=== PATIENT | male | born 1955 | race Caucasian/White ===

== ENCOUNTER 2021-02-18 13:19 | Emergency (ER) | payer MEDICARE, OTHER ==
--- NOTE | 2021-02-18 13:23 | ERPHSYRPT ---
- History of Present Illness Time Seen by Provider: 02/18/21 13:23 - Departure Referrals: MAISHA CHA [Primary Care Provider] -
--- NOTE | 2021-02-18 13:24 | ERPHSYRPT ---
- History of Present Illness Time Seen by Provider: 02/18/21 13:24 Source: patient Exam Limitations: no limitations Physician History: This is a 65-year-old gentleman who is right-handed and suffered a laceration to his right forearm medial aspect just prior to evaluation here in the emergency department. Patient was working with machinery and the machinery came apart cutting his right forearm. Patient states that he had a tetanus injection 1 to 2 years ago but certainly within the last 5 years. Timing/Duration: today Quality: painful Severity: mild Location: extremities (Right forearm) Possible Causes: other (Laceration with medical equipment) Associated Symptoms: denies symptoms Allergies/Adverse Reactions: No Known Drug Allergies Allergy (Unverified 02/18/21 13:33) Home Medications: Amlodipine Besylate 5 mg [Norvasc 5 mg] 5 mg PO DAILY 02/18/21 [History] Labetalol HCl [Trandate] 100 mg PO BID 02/18/21 [History] Travel Risk - International Travel Have you traveled outside of the country in past 3 weeks: No - Coronavirus Screening Are you exhibiting any of the following symptoms?: No Close contact with a COVID-19 positive Pt in past 14-21 Days: No - Review of Systems Constitutional: No Symptoms Eyes: No Symptoms Ears, Nose, & Throat: No Symptoms Respiratory: No Symptoms Cardiac: No Symptoms Abdominal/Gastrointestinal: No Symptoms Genitourinary Symptoms: No Symptoms Musculoskeletal: No Symptoms Skin: No Symptoms, Other (Laceration right forearm) Neurological: No Symptoms Psychological: No Symptoms Endocrine: No Symptoms Hematologic/Lymphatic: No Symptoms Immunological/Allergic: No Symptoms All Other Systems: Reviewed and Negative - Past Medical History Pertinent Past Medical History: Yes - Past Surgical History Past Surgical History: Yes - Nursing Vital Signs Nursing Vital Signs: Initial Vital Signs Temperature 97.1 F 02/18/21 13:20 Pulse Rate 70 02/18/21 13:20 Respiratory Rate 18 02/18/21 13:20 Blood Pressure 125/68 02/18/21 13:20 O2 Sat by Pulse Oximetry 97 02/18/21 13:20 Pain Scale Pain Intensity 2 - Physical Exam General Appearance: no apparent distress, alert, anxiety Eye Exam: PERRL/EOMI, eyes nml inspection Ears, Nose, Throat Exam: normal ENT inspection Neck Exam: normal inspection, non-tender, supple, full range of motion Respiratory Exam: normal breath sounds, lungs clear, airway intact, No chest tenderness, No respiratory distress Gastrointestinal/Abdomen Exam: No tenderness Rectal Exam: not done Back Exam: normal inspection, normal range of motion, No CVA tenderness, No vertebral tenderness Extremity Exam: normal range of motion, pelvis stable, lacerations (6.5 cm laceration inner aspect right forearm. No foreign body. Wound was examined to the base without any bleeding present. Proximal to this laceration, there to superficial abrasions present. Patient is neurovascularly intact. There is no evidence of any tendon injury.) Neurologic Exam: alert, oriented x 3, cooperative, survey chief II-XII nml as tested, normal mood/affect, nml cerebellar function, nml station & gait, sensation nml Skin Exam: warm, dry, laceration (See above) Lymphatic Exam: No adenopathy SpO2 Interpretation: normal O2 Delivery: Room Air Procedures - Laceration/Wound Repair Right Medial Other Time of Procedure: 13:40 Wound Location: Right, lower arm Wound Length (cm): 6.5 Wound's Depth, Shape: superficial, linear, into subcut Wound Explored: clean Irrigated: Yes Hibiclens Prep: Yes Wound Repaired With: [place] (11 [place] placed) Layer Closure?: No Sterile Dressing Applied?: Yes Splint Applied?: No Sling Applied?: No - Course Nursing assessment & vital signs reviewed: Yes - Progress Progress: improved, pain not gone completely, re-examined Counseled pt/family regarding: diagnosis, need for follow-up - Departure Departure Disposition: Home Clinical Impression: Laceration of forearm Condition: Stable Critical Care Time: No Referrals: MAISHA CHA [Primary Care Provider] - Additional Instructions: Keep current pressure dressing in place until tomorrow evening (02/19/2021). On the evening of 02/19/2021, remove the dressing and may shower daily. Blot dry use a hairdryer. May apply antibiotic ointment daily followed by replacing dressing. Return to the emergency department in 10 days for staple removal. Take your medication as prescribed. May add Tylenol and ibuprofen for pain control. Prescriptions: Ondansetron ODT 4 MG [Zofran Odt 4 mg] 4 mg PO Q8H PRN PRN #10 tab.rapdis PRN Reason: Vomiting Cephalexin Mh 500 mg [Keflex 500 mg] 500 mg PO TID #15 capsule
[2021-02-18] MEDS ORDERED: BACIGUENT PACKET TP ONE (13:48)
[2021-02-18] MEDS ORDERED: BACIGUENT PACKET ONE (13:50)
[2021-02-18 14:17] VITALS: BP 128/65; PULSE 65; O2SAT 98
== END 2021-02-18 14:15 | disposition home or self-care (01) ==
LOC: ED 13:19
DX: S51.811A Laceration without foreign body of right forearm, initial encounter (principal); W31.9XXA Contact with unspecified machinery, initial encounter; Y93.9 Activity, unspecified; Y92.9 Unspecified place or not applicable
CPT/HCPCS: 12002; 99283; A9270-GY

== ENCOUNTER 2022-01-09 06:28 | Day surgery (SDC) | payer MEDICARE, OTHER ==
[2022-01-09] MEDS ORDERED: Lactated Ringers 1,000 ML IV SCH (06:30)
[2022-01-09] MEDS ORDERED: Xylocaine-Mpf 2% 5 Ml Vial ONE (07:57)
[2022-01-09] MEDS ORDERED: Versed 2 MG/2 ML Injection ONE (07:57)
[2022-01-09] MEDS ORDERED: DIPRIVAN 200 MG/20 ML IV ONE (07:57)
[2022-01-09 09:32] VITALS: BP 135/78; PULSE 60; O2SAT 98
--- NOTE | 2022-01-10 07:45 | OP ---
SURGERY DATE/TIME: 01/09/2022 0810 PREOPERATIVE DIAGNOSIS: Screening colonoscopy. POSTOPERATIVE DIAGNOSES: 1) Descending colon polyp. 2) Diverticulosis. PROCEDURE: Colonoscopy. SURGEON: Jonathan Ray M.D. ANESTHESIA: MAC by Daniel Pitts CRNA. ESTIMATED BLOOD LOSS: Minimal. SPECIMENS: Hot forceps polypectomy from the descending colon. DESCRIPTION OF PROCEDURE: After informed written consent was obtained, the patient was taken to the endoscopy suite. He was placed in left lateral decubitus position and had anesthesia titrated to desired level of consciousness. Digital rectal exam showed normal sphincter tone and no internal lesions. The scope was inserted in the rectum and sequentially the entire colonic mucosa was traversed. The level of cecum was reached and verified with direct visualization of the ileocecal valve. Upon withdrawal scattered diverticula were present throughout much of the colon mostly on the left side in the sigmoid and descending colon. There was a sessile polyp in the descending colon area which was grasped with forceps, cauterized and removed in its entirety. The remainder of the exam again showed scattered diverticular but no other lesions. Prior to withdrawal retroflexion was performed and showed no internal lesions. The scope was removed and the patient was transferred to the recovery room in good condition.
== END 2022-01-09 09:50 | disposition home or self-care (01) ==
LOC: SDC 06:28
PROVIDERS: ATTEND Family Medicine
DX: Z12.11 Encounter for screening for malignant neoplasm of colon (principal); D12.4 Benign neoplasm of descending colon; K57.30 Diverticulosis of large intestine without perforation or abscess without bleeding
CPT/HCPCS: J2250; J2704